=== PATIENT | female | born 1990 | race Caucasian/White ===

== ENCOUNTER → 2016-11-29 | Outpatient (CLI) | payer BC ==
[2016-11-29 16:51] LABS: Basophils # (auto) 0 uL; Basophils % (auto) 0.2 % (0.0-2.0); Eosinophils # (auto) 0.1 uL; Eosinophils % (auto) 1.1 % (0.0-7.0); Lymphocytes # (auto) 1.8 uL; Lymphocytes % (auto) 13.6 % (10.0-50.0); Mean Corpuscular Hemoglobin 27.6 pg (28.0-32.0); Mean Corpuscular Hgb Conc. 32.4 g/dL (32.0-36.0); Mean Corpuscular Volume 85.3 fL (80.0-100.0); Monocytes # (auto) 0.8 uL; Monocytes % (auto) 5.9 % (0.0-12.0); Neutrophils # (auto) 10.2 uL; Neutrophils % (auto) 79.2 % (37.0-80.0); Platelet Count (auto) 318 10^3/uL (140-450); Red Cell Distribution Width 12.6 % (11.6-16.0); White Blood Cell 12.9 10^3/uL (4.4-10.8)
== END | disposition home or self-care (01) ==
LOC: LAB 16:40
PROVIDERS: ATTEND Specialist
DX: Z34.00 Encounter for supervision of normal first pregnancy, unspecified trimester (principal); Z11.3 Encounter for screening for infections with a predominantly sexual mode of transmission; N76.0 Acute vaginitis
CPT/HCPCS: 36415; 85025; 87081

== ENCOUNTER 2016-12-15 11:45 | Observation (INO) | payer BC ==
[2016-12-16] MEDS ORDERED: PREN-125 PO (05:33)
== END 2016-12-15 13:35 | disposition home or self-care (01) | DRG 782 ==
LOC: LDRP 11:45
PROVIDERS: ADMIT Obstetrics & Gynecology; ATTEND Obstetrics & Gynecology
DX: O62.9 Abnormality of forces of labor, unspecified (principal); Z3A.38 38 weeks gestation of pregnancy
CPT/HCPCS: 59025; 81002; G0378

== ENCOUNTER 2016-12-15 18:25 | Observation (INO) | payer BC ==
[2016-12-16] MEDS ORDERED: PREN-125 PO (05:33)
== END 2016-12-15 20:27 | disposition home or self-care (01) | DRG 782 ==
LOC: LDRP 18:25
PROVIDERS: ADMIT Obstetrics & Gynecology; ATTEND Obstetrics & Gynecology
DX: O62.9 Abnormality of forces of labor, unspecified (principal); Z3A.38 38 weeks gestation of pregnancy
CPT/HCPCS: 59025; 81002; G0378

== ENCOUNTER 2016-12-15 23:20 | Inpatient (IN) | payer BC ==
[~2016-12-15] VITALS: Ht 154.9 cm; Wt 77.1 kg
[2016-12-16] MEDS ORDERED: LACTATED RINGER'S 1,000 ML IV SCH (01:46)
[2016-12-16] MEDS ORDERED: LACT. RINGERS/OXYTOCIN 20UNITS 1,000 ML IV SCH (01:46)
[2016-12-16] MEDS ORDERED: NALBUPHINE HCL 10 MG/1ml INJECTION IV PRN (02:00)
[2016-12-16] MEDS ORDERED: PROMETHAZINE HCL 25 MG/ML 1ML IV PRN (02:00)
[2016-12-16] MEDS ORDERED: fentaNYL CITRATE 100 MCG/2 ML VL IV ONE ×3 (02:00→05:45)
[2016-12-16] MEDS ORDERED: LIDOCAINE HCL 2 %PF INJ 10ML AMP IJ ONE ×2 (02:00→02:52)
[2016-12-16] MEDS ORDERED: NALOXONE HCL 0.4 MG/ML VIAL IV ONE ×2 (02:00→04:00)
[2016-12-16] MEDS ORDERED: DERMOPLAST 60ML BOTTLE TOP PRN (02:00)
[2016-12-16] MEDS ORDERED: WITCH HAZEL-GLYCERIN PAD TOP PRN (02:00)
[2016-12-16] MEDS ORDERED: ePHEDrine SULFATE 50 MG/ML AMP IV ONE ×3 (02:00→05:45)
[2016-12-16] MEDS ORDERED: PHISODERM TOP SOLN 240ML BTL TOP PRN (02:00)
[2016-12-16] MEDS ORDERED: fentaNYL W ROPIVACAINE 150 ML EPI SCH ×2 (02:00→04:00)
[2016-12-16] MEDS ORDERED: METHYLERGONOVINE MALEATE 0.2 MG/ML AMP IM PRN (02:00)
[2016-12-16] MEDS ORDERED: LIDOCAINE 2%HCL (LOCAL ANESTH.) INJ 20ML MDV IJ ONE ×3 (02:00→05:45)
[2016-12-16] MEDS ORDERED: LACT. RINGERS/OXYTOCIN 20UNITS 1,000 ML IV ONE (02:30)
[2016-12-16] MEDS ORDERED: LIDOCAINE 2%HCL (LOCAL ANESTH.) INJ 20ML MDV ONE (02:30)
[2016-12-16 02:31] LABS: Hematocrit 34.6 % (36.0-46.0); Hemoglobin 11.3 g/dL (12.2-16.2); Mean Corpuscular Hemoglobin 27.4 pg (28.0-32.0); Mean Corpuscular Hgb Conc. 32.6 g/dL (32.0-36.0); Mean Corpuscular Volume 83.9 fL (80.0-100.0); Mean Platelet Volume 8.7 fL (7.4-10.4); Platelet Count (auto) 341 10^3/uL (140-450); SUSPECT VIEW TRANSMISSION; White Blood Cell 25.4 10^3/uL (4.4-10.8)
[2016-12-16] MEDS ORDERED: DERMOPLAST 60ML BOTTLE TOP ONE (02:31)
[2016-12-16] MEDS ORDERED: PHISODERM TOP SOLN 240ML BTL TOP ONE (02:31)
[2016-12-16] MEDS ORDERED: WITCH HAZEL-GLYCERIN PAD TOP ONE (02:31)
[2016-12-16 02:36] LABS: Metamyelocytes % 0; Myelocytes % 0; Promyelocytes % 0; Reactive Lymphocytes 0
[2016-12-16 02:46] LABS: INR 0.94 (0.9-1.15); Partial Thromboplastin Time 29.2 sec (22.64-33.71); Prothrombin Time 9.7 sec (9.37-12.3)
[2016-12-16 02:50] LABS: Platelet Estimate Adequate; RBC Morphology Normal
[2016-12-16] MEDS ORDERED: ePHEDrine SULFATE 50 MG/ML AMP ONE (02:51)
[2016-12-16] MEDS ORDERED: fentaNYL CITRATE 100 MCG/2 ML VL ONE (02:51)
[2016-12-16] MEDS ORDERED: fentaNYL W ROPIVACAINE 150 ML EPI ONE (02:51)
[2016-12-16 02:54] LABS: Albumin 2.5 g/dL (3.4-5.0); BUN/Creatinine Ratio 12.9; Calcium 7.9 mg/dL (8.5-10.1); Potassium 3.8 mmol/L (3.5-5.1)
[2016-12-16 02:56] LABS: Bilirubin, Total 0.5 mg/dL (0.2-1.0); Total Protein 6.5 g/dL (6.4-8.2)
[2016-12-16 04:21] LABS: Urine Bilirubin Negative (Negative); Urine Color Yellow (Yellow); Urine Glucose Normal (Normal); Urine Mucus FEW (None Seen); Urine Nitrite Negative (Negative); Urine RBC 14 /hpf (0 - 4); Urine Squamous Epithelial Cell FEW /hpf (<5); Urine Urobilinogen Normal (Negative); Urine pH 5.5 (5.0-8.0)
[2016-12-16 04:23] LABS: Urine Blood 2+ /uL (Negative); Urine Ketone 2+ (Negative)
[2016-12-16] MEDS ORDERED: PREN-125 PO (05:33)
[2016-12-16] MEDS ORDERED: LACT. RINGERS/OXYTOCIN 20UNITS 500 ML IV ONE (09:29)
[2016-12-16] MEDS ORDERED: ACETAMINOPHEN 325 MG TAB PO PRN (09:30)
[2016-12-16] MEDS ORDERED: IBUPROFEN 600 MG TAB PO PRN (09:30)
[2016-12-16] MEDS ORDERED: ONDANSETRON HCL 4 MG/2 ML VIAL IV PRN (09:30)
[2016-12-16] MEDS: DOCUSATE CALCIUM 240 MG CAP PO SCH (10:00)
[2016-12-16 12:00] VITALS: BP 115/67
[2016-12-16 16:00] VITALS: BP 109/56
[2016-12-16] MEDS: IBUPROFEN 600 MG TAB PO PRN (19:20)
[2016-12-16 20:30] VITALS: BP 120/80
[2016-12-17 00:16] VITALS: BP 115/78
[2016-12-17 03:30] VITALS: BP 120/80
[2016-12-17 07:59] VITALS: BP 121/78
[2016-12-17] MEDS: IBUPROFEN 600 MG TAB PO PRN (09:18)
[2016-12-17] MEDS: DOCUSATE CALCIUM 240 MG CAP PO SCH (10:15)
[2016-12-17 12:12] VITALS: BP 114/68
== END 2016-12-17 15:50 | disposition home or self-care (01) | DRG 775 ==
LOC: OBSVTOIN 23:20 → LDRP 23:20
PROVIDERS: ADMIT Obstetrics & Gynecology; ATTEND Obstetrics & Gynecology
PROC: 10D07Z6 Extraction of Products of Conception, Vacuum, Via Natural or Artificial Opening (ICD-10-PCS; principal; 2016-12-17)
PROC: 3E0S3CZ (ICD-10-PCS; 2016-12-17)
PROC: 00HU33Z Insertion of Infusion Device into Spinal Canal, Percutaneous Approach (ICD-10-PCS; 2016-12-17)
PROC: 0W8NXZZ Division of Female Perineum, External Approach (ICD-10-PCS; 2016-12-17)
DX: O42.92 Full-term premature rupture of membranes, unspecified as to length of time between rupture and onset of labor (principal); O99.52 Diseases of the respiratory system complicating childbirth; O99.62 Diseases of the digestive system complicating childbirth; K58.9 Irritable bowel syndrome, unspecified; K82.8 Other specified diseases of gallbladder; O77.0 Labor and delivery complicated by meconium in amniotic fluid; K21.9 Gastro-esophageal reflux disease without esophagitis; J45.909 Unspecified asthma, uncomplicated; Z91.041 Radiographic dye allergy status; Z37.0 Single live birth; Z3A.39 39 weeks gestation of pregnancy; Z91.040 Latex allergy status
CPT/HCPCS: 36415; 51702; 59025; 59409; 80053; 81001; 85007; 85027; 85049; 85610; 85730; 86850; 86900; 86901; 96365; 96366; G0378; J2590; J3010

== ENCOUNTER → 2017-01-28 | Outpatient (CLI) | payer BC ==
[~2017-01-28] MED LIST: PREN-125 PO
== END | disposition home or self-care (01) ==
LOC: LAB 07:31
PROVIDERS: ATTEND Specialist
DX: N39.0 Urinary tract infection, site not specified (principal)
CPT/HCPCS: 87086